=== PATIENT | female | born 1975 | race Caucasian/White ===

== ENCOUNTER 2016-11-11 19:01 | Inpatient (IN) | payer BC ==
[2016-11-11] MEDS ORDERED: Dinoprostone* 10 MG VAG.SUPP VAGINAL ONE ×2 (19:16→21:20)
[2016-11-11 22:12] LABS: Hematocrit 35 % (35-47); Hemoglobin 11.8 g/dl (12.0-16.0); Mean Corpuscular HGB Conc 34 g/dl (31-36); Mean Corpuscular Hemoglobin 31 pg (27-31); Mean Corpuscular Volume 94 fL (80-97); Mean Platelet Volume 11 um3 (7.4-10.4); Red Blood Count 3.74 10^6/ul (4.0-5.4); Red Cell Distribution Width 14 % (10.5-15); White Blood Count 9.7 10^3/ul (3.5-10.8)
[2016-11-11 22:31] LABS: Albumin 2.8 g/dL (3.2-5.2); EGFR African American 135.3 (>60); EGFR Non-African American 105.2 (>60); Globulin 2.6 g/dL (2-4); Potassium 3.5 mmol/L (3.5-5.0); Total Bilirubin 0.2 mg/dL (0.2-1.0); Total Protein 5.4 g/dL (6.4-8.9); Uric Acid 3.4 mg/dL (2.3-6.6)
[2016-11-12] MEDS: Levothyroxine TAB* 50 MCG TAB PO SCH (07:13)
[2016-11-12] MEDS ORDERED: Oxytocin in LR* 20 UNITS/1,000 ML BAG IVPB ONE (09:49)
[2016-11-12] MEDS ORDERED: Oxytocin in LR* 20 UNITS/1,000 ML BAG IVPB SCH (10:00)
[2016-11-12] MEDS ORDERED: Nalbuphine* 20 MG/ML 1 ML VIAL IV ONE (15:55)
[2016-11-12] MEDS ORDERED: Promethazine INJ(RESTRICTED)* 25 MG/ML 1 ML VIAL IV ONE (15:55)
[2016-11-12] MEDS ORDERED: Nalbuphine* 20 MG/ML 1 ML VIAL ONE (15:56)
[2016-11-12] MEDS ORDERED: Promethazine INJ(RESTRICTED)* 25 MG/ML 1 ML VIAL ONE (15:56)
[2016-11-12] MEDS ORDERED: Glycerin ADULT SUPP PR PRN (21:39)
[2016-11-12] MEDS ORDERED: Zolpidem TAB* 5 MG PO PRN (21:39)
[2016-11-12] MEDS ORDERED: oxyCODONE/Acetamin 5/325 MG* TAB PO PRN (21:39)
[2016-11-12] MEDS ORDERED: Witch Hazel PAD* JAR TOPICAL PRN (21:39)
[2016-11-12] MEDS ORDERED: Acetaminophen TAB* 325 MG PO PRN (21:39)
[2016-11-12] MEDS ORDERED: Dibucaine 1% 28.35 GM TUBE PR PRN (21:39)
[2016-11-13] MEDS: Ibuprofen TAB* 600 MG PO PRN ×3 (00:50→16:28)
[2016-11-13 06:53] LABS: Hematocrit 34 % (35-47); Hemoglobin 11.3 g/dl (12.0-16.0); Mean Corpuscular HGB Conc 33 g/dl (31-36); Mean Corpuscular Hemoglobin 31 pg (27-31); Mean Corpuscular Volume 94 fL (80-97); Mean Platelet Volume 10 um3 (7.4-10.4); Red Blood Count 3.61 10^6/ul (4.0-5.4); Red Cell Distribution Width 14 % (10.5-15); White Blood Count 15.7 10^3/ul (3.5-10.8)
[2016-11-13] MEDS: Docusate CAP* 100 MG PO SCH ×3 (08:16→21:49)
[2016-11-13] MEDS: Levothyroxine TAB* 50 MCG TAB PO SCH (08:16)
--- NOTE | 2016-11-13 15:17 | PTEDU ---
Patient Name: DEANNE DORADO DEANNE DORADO selected video: Follow Me Mum: [employer] [facility] Successful to view on 11/13 at 3:16:33 PM [id number]
[2016-11-13] MEDS: Simethicone CHEW TAB* 80 MG PO SCH ×3 (16:28→18:58)
[2016-11-13] MEDS: Ferrous Gluconate TAB* 324 MG TAB PO SCH (16:29)
[2016-11-14] MEDS: Ibuprofen TAB* 600 MG PO PRN ×2 (01:36→08:20)
[2016-11-14] MEDS: Levothyroxine TAB* 50 MCG TAB PO SCH (07:25)
[2016-11-14] MEDS: Ferrous Gluconate TAB* 324 MG TAB PO SCH (07:28)
[2016-11-14] MEDS: Simethicone CHEW TAB* 80 MG PO SCH (07:28)
[2016-11-14 08:00] VITALS: BP 135/66
[2016-11-14] MEDS: Docusate CAP* 100 MG PO SCH (08:20)
== END 2016-11-14 14:02 | disposition home or self-care (01) | DRG 542 ==
LOC: MCHOBOUT 19:01 → MCHOB 21:20
PROVIDERS: ADMIT Obstetrics & Gynecology; ATTEND Obstetrics & Gynecology
PROC: 10E0XZZ Delivery of Products of Conception, External Approach (ICD-10-PCS; principal; 2016-11-12)
PROC: 3E033VJ Introduction of Other Hormone into Peripheral Vein, Percutaneous Approach (ICD-10-PCS; 2016-11-12)
PROC: 0DQR0ZZ Repair Anal Sphincter, Open Approach (ICD-10-PCS; 2016-11-12)
DX: O13.4 Gestational [pregnancy-induced] hypertension without significant proteinuria, complicating childbirth (principal); O70.20 Third degree perineal laceration during delivery, unspecified; E03.9 Hypothyroidism, unspecified; O99.284 Endocrine, nutritional and metabolic diseases complicating childbirth; O99.344 Other mental disorders complicating childbirth; F41.9 Anxiety disorder, unspecified; Z3A.38 38 weeks gestation of pregnancy; Z37.0 Single live birth
CPT/HCPCS: 36415; 59200; 80053; 84550; 85025; 86850; 86900; 86901; A9270-GY; J2300; J2550